=== PATIENT | female | born 1960 | race African-American/Black ===

== ENCOUNTER 2017-08-28 15:14 | Emergency (ER) | payer BC ==
[2017-08-28 15:41] VITALS: BP 153/84; PULSE 87; TEMP 98.6; BMI 27.8
--- NOTE | 2017-08-28 16:09 | PDOC ---
History of Present Illness - General Chief Complaint: Eye Problem Stated Complaint: EYE PROBLEM Time Seen by Provider: 08/28/17 16:03 History Source: Patient Exam Limitations: No Limitations - History of Present Illness Initial Comments: 08/28/17 16:29 CHIEF COMPLAINT: Left eye flash pain and photophobia HISTORY OF PRESENT ILLNESS: 56-year-old female with history of chronic blepharitis with recurrent styes under the care of Dr. Zhao currently taking doxycycline, ofloxacin and Durezol, presents emergency department because Dr. Zhao is adequate state with sudden onset of flashing lights to left eye, conjunctiva is injected, drainage and pain with photophobia. Denies trauma, denies foreign body. REVIEW OF SYSTEMS: GENERAL/CONSTITUTIONAL: No fever or chills. No weakness. No weight change. HEAD, EYES, EARS, NOSE AND THROAT: No change in vision. Photophobia, drainage, pain and injected left eye.No ear pain or discharge. No sore throat. RESPIRATORY: No cough, wheezing, or hemoptysis. SKIN : No rash or easy bruising. NEUROLOGIC: No headache, vertigo, loss of consciousness, or loss of sensation. HEMATOLOGIC/LYMPHATIC: No lymphadenopathy ALLERGIC/IMMUNOLOGIC: No hives or skin allergy. No latex allergy. PHYSICAL EXAM: GENERAL: The patient is awake, alert, and fully oriented, in no acute distress. HEAD: Normal with no signs of trauma. EYES: Pupils equal, round and reactive to light, extraocular movements intact, no entrapment , sclera anicteric, conjunctiva injected, extending to limbus after fluorescein staining, no corneal abrasion noted. + Photophobia ENT: Ears normal, nares patent, oropharynx clear without exudates. Moist mucous membranes. NECK: Normal range of motion, supple without lymphadenopathy, JVD, or masses. LUNGS: Breath sounds equal, clear to auscultation bilaterally. No wheezes, and no crackles. NEUROLOGICAL: Cranial nerves II through XII grossly intact. Normal speech, normal gait. SKIN: No erythema no facial edema. Warm, Dry, normal turgor, no rashes or lesions noted. Past History - Past Medical History Allergies/Adverse Reactions: Allergies Allergy/AdvReac Type Severity Reaction Status Date / Time No Known Allergies Allergy Verified 11/01/12 00:49 Home Medications: Ambulatory Orders No Home Medications 0 dose .ROUTE UTDICT 11/01/12 Anemia: No Asthma: No Cancer: No Cardiac Disorders: No CVA: No COPD: No CHF: No Dementia: No Diabetes: No GI Disorders: No Disorders: No HTN: No Hypercholesterolemia: No Liver Disease: No Seizures: No Thyroid Disease: No - Surgical History Abdominal Surgery: No Appendectomy: No Cardiac Surgery: No Cholecystectomy: No Lung Surgery: No Neurologic Surgery: No Orthopedic Surgery: No - Suicide/Smoking/Psychosocial Hx Smoking Status: No Smoking History: Never smoked Have you smoked in the past 12 months: No Number of Cigarettes Smoked Daily: 0 Information on smoking cessation initiated: No Hx Alcohol Use: Yes (nightly) Drug/Substance Use Hx: No Substance Use Type: Alcohol Hx Substance Use Treatment: No *Physical Exam - Vital Signs Last Vital Signs Temp Pulse Resp BP Pulse Ox 98.6 F 87 18 153/84 100 08/28/17 15:35 08/28/17 15:35 08/28/17 15:35 08/28/17 15:35 08/28/17 15:35 Medical Decision Making - Medical Decision Making 08/28/17 16:09 08/28/17 16:34 A/P: Patient here for evaluation of sudden onset of flashing to left eye with photophobia and pain. There is no corneal abrasion noted, conjunctiva is injected. Spoke to Dr. Zhao is requesting for ophthalmology to evaluate spoke to Dr. Rodriguez see patient in 30 minutes upon discharge in his office. Patient is accompanied by her friend will take her immediately to office. *DC/Admit/Observation/Transfer Diagnosis at time of Disposition: Eye pain Qualifiers: Laterality: left Qualified Code(s): H57.12 - Ocular pain, left eye; H57.12 - Ocular pain, left eye - Discharge Dispostion Disposition: HOME Condition at time of disposition: Good Admit: No - Referrals Referrals: Kenyno Rodriguez MD [Staff Physician] - Ron Zhao [Primary Care Provider] - - Patient Instructions Additional Instructions: Go immediately to the office of Dr. Rodriguez at at [facility] he will be treated every 45 minutes.
== END 2017-08-28 16:41 | disposition home or self-care (01) ==
LOC: JERFT 15:14
DX: H57.12 Ocular pain, left eye (principal)
CPT/HCPCS: 99281-25

== ENCOUNTER 2023-09-23 04:34 | Day surgery (SDC) | payer BC ==
[2023-09-21 11:13] VITALS: BMI 29.7
[2023-09-23 11:12] VITALS: TEMP 97.5
[2023-09-23 11:58] VITALS: BP 128/87; PULSE 68; RESP 18
== END 2023-09-23 12:48 | disposition home or self-care (01) ==
LOC: JASU-ENDO 04:34
PROVIDERS: ATTEND Internal Medicine Gastroenterology
PROC: 0DB98ZX Excision of Duodenum, Via Natural or Artificial Opening Endoscopic, Diagnostic (ICD-10-PCS; 2023-09-23)
PROC: 0DB78ZX Excision of Stomach, Pylorus, Via Natural or Artificial Opening Endoscopic, Diagnostic (ICD-10-PCS; 2023-09-23)
PROC: 0DB68ZX Excision of Stomach, Via Natural or Artificial Opening Endoscopic, Diagnostic (ICD-10-PCS; 2023-09-23)
PROC: 0DJD8ZZ Inspection of Lower Intestinal Tract, Via Natural or Artificial Opening Endoscopic (ICD-10-PCS; principal; 2023-09-23 11:00)
DX: Z12.11 Encounter for screening for malignant neoplasm of colon (principal); K57.30 Diverticulosis of large intestine without perforation or abscess without bleeding; Z86.010 Personal history of colon polyps; Z80.0 Family history of malignant neoplasm of digestive organs; K21.00 Gastro-esophageal reflux disease with esophagitis, without bleeding
CPT/HCPCS: 88305-TC; 88342-TC